=== PATIENT | male | born 1990 | race Caucasian/White ===

== ENCOUNTER 2023-05-23 22:18 | Inpatient (IN) | payer MEDICAID, SELFPAY ==
[2023-05-23 22:34] VITALS: BMI 23.6
[2023-05-23 22:35] VITALS: BP 147/96; PULSE 76; RESP 20; TEMP 36.8; O2SAT 100
[2023-05-24] MEDS: buprenorphine-naloxone 4-1 mg Film 1 EACH SUBLINGUAL (00:32)
[2023-05-24] MEDS: BuSPIRONE 10 mg Tablet 5 MG PO ×4 (00:32→21:03)
[2023-05-24] MEDS: trazodone 50 mg Tablet PO ×2 (00:36→21:04)
--- NOTE | 2023-05-24 02:51 | PC.NURSE ---
UPON ADMISSION PT WANTED TO RESTART MEDICATION. THIS NURSE CALLED DR. NICOLAS AND WAS GIVEN TELEPHONE ORDERS TO START ALL MEDICATION BUT SUBOXONE. ONE TIME ORDER FOR SUBOXONE WAS GIVEN AND FOR DR. GARCIA TO EVALUATE ON 05/24 IF IT SHOULD BE RESTARTED AFTER ONE TIME DOSE. PT WAS GIVEN BUSPAR AND ONE TIME DOSE OF SUBOXONE ORDERED.
[2023-05-24 06:00] VITALS: BP 99/56; PULSE 54; RESP 16; TEMP 36.7; O2SAT 98
[2023-05-24] MEDS: nicotine 4 mg lozenge MUCOUS MEM ×3 (07:42→21:03)
[2023-05-24] MEDS: sertraline 50 mg Tablet PO (08:52)
[2023-05-24] MEDS: ARIPiprazole 2 mg Tablet PO (08:52)
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
[2023-05-24] MEDS: buprenorphine-naloxone 4-1 mg Film 2 EACH SUBLINGUAL ×2 (11:15→17:25)
[2023-05-24] MEDS: nicotine 2 mg Gum BUCCAL ×2 (11:17→18:10)
[2023-05-24 14:00] VITALS: BP 135/86; PULSE 71; RESP 16; TEMP 36.6; O2SAT 96
[2023-05-24] MEDS: hyDROXYzine 25 mg Capsule 50 MG PO (21:04)
[2023-05-24 21:35] VITALS: BP 147/91; PULSE 70; RESP 18; TEMP 36.6; O2SAT 98
--- NOTE | 2023-05-24 23:42 | PC.NURSE ---
PT REQUESTS SOMETHING FOR ANXIETY AND TO HELP ME SLEEP, PT WAS GIVEN VISTARIL 50 MG PO FOR ANXIETY AND TRAZODONE 50 MG FOR SLEEP. MEDICATION HAS BEEN EFFECTIVE, PT HAS BEEN RESTING IN BED WITH EYES CLOSED, NO DISTRESS.
[2023-05-25 06:00] VITALS: RESP 15
[2023-05-25] MEDS: BuSPIRONE 10 mg Tablet 5 MG PO ×3 (08:48→20:19)
[2023-05-25] MEDS: sertraline 50 mg Tablet PO (08:48)
[2023-05-25] MEDS: ARIPiprazole 2 mg Tablet PO (08:48)
[2023-05-25] MEDS: buprenorphine-naloxone 4-1 mg Film 2 EACH SUBLINGUAL ×2 (08:48→18:09)
[2023-05-25] MEDS: nicotine 2 mg Gum BUCCAL ×3 (09:58→18:21)
--- NOTE | 2023-05-25 12:10 | P.NPUPN_ITS ---
Subjective NPU Subjective: Patient presented today reporting that he was doing okay. He reports that he feels safe inside the building and feels happy that he is getting the help he feels he needs. He has turned down some paperwork for [facility] and feels that getting his addiction treated his chance for getting better. We discussed the likelihood that he would be here over the weekend and he denied any major issues with that. He reports that he is eating okay and starting to sleep a little better. Mental Status Exam MSE Comments: This is a well-nourished well-developed white male in hospital scrubs with limi torie grooming but adequate eye contact. No abnormal movements except for psychomotor retardation. Cooperative with exam in mild distress. Speech was limited slightly decreased rate normal volume. Mood described as depressed, affect congruent. Thought process organized. Thought content: Patient endorsed suicidal but denied homicidal ideation, there were no delusions reported or noted, he denied any auditory or visual hallucinations. Attention and concentration appeared intact and memory was mostly reliable but none were formally tested. He was alert and oriented x 3. Insight and judgment were limited and impulse control was impaired. Vitals/I&O/Wt Last Vital Signs Temp 97.8 F 05/24/23 21:35 Pulse 70 05/24/23 21:35 Resp 15 05/25/23 06:00 BP 147/91 05/24/23 21:35 Pulse Ox 98 05/24/23 21:35 O2 Del Method Room Air 05/24/23 21:35 Weight last 48 hrs Weight 72.575 kg A&P Assessment and plan (1) Major depressive disorder, recurrent: (2) Suicide attempt: (3) Methamphetamine abuse: (4) Alcohol abuse: (5) Opioid dependence: Plan Patient is a 32-year-old single white male admitted after a suicide attempt via overdose on fentanyl and heroin revived through Narcan with reports of depressed mood and reporting the absence of current medications for several months. Patient will continue to require acute inpatient hospitalization while reexamining medications. He may benefit from inpatient substance abuse treatment as well. ?1. Encourage individual, group and milieu therapy. ?2.Recommend sober living treatment at the highest level of care to which the patient is willing to commit. 3.Continue q-15 minute checks for safety.? 4. CIWA x1-2 days only 5. Restart previous medications including suboxone Involuntary Hold Information 96 Hour Hold: 96 Hour Involuntary Admission: No Attestations NPU Medical Necessity Statement*: Inpatient hospitalization is medically necessary and deemed to ?be ?the clinically appropriate intervention at this time.? We will monitor/initiate medications and make changes as indicated.? Likely length of stay 6-9 days. Coding Level of Care Code Acute Code for Chg Fwd Diagnoses Major depressive disorder, recurrent F33.9 Suicide attempt T14.91XA Methamphetamine abuse F15.10 Alcohol abuse F10.10 Opioid dependence F11.20
[2023-05-25] MEDS: nicotine 4 mg lozenge MUCOUS MEM ×2 (13:13→20:19)
[2023-05-25 14:00] VITALS: BP 128/77; PULSE 71; RESP 16; TEMP 36.7; O2SAT 96
[2023-05-25 21:31] VITALS: BP 151/96; PULSE 72; RESP 16; TEMP 36.7; O2SAT 96
[2023-05-25] MEDS: trazodone 50 mg Tablet PO (21:42)
[2023-05-25] MEDS: hyDROXYzine 25 mg Capsule 50 MG PO (21:42)
[2023-05-26 06:00] VITALS: BP 113/74; PULSE 62; RESP 17; TEMP 36.6; O2SAT 95
[2023-05-26] MEDS: ARIPiprazole 2 mg Tablet PO (08:37)
[2023-05-26] MEDS: nicotine 4 mg lozenge MUCOUS MEM ×5 (08:37→20:05)
[2023-05-26] MEDS: buprenorphine-naloxone 4-1 mg Film 2 EACH SUBLINGUAL ×2 (08:37→18:07)
[2023-05-26] MEDS: sertraline 50 mg Tablet PO (08:38)
[2023-05-26] MEDS: BuSPIRONE 10 mg Tablet 5 MG PO ×3 (08:38→20:05)
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
[2023-05-26 14:00] VITALS: BP 139/88; PULSE 76; RESP 20; TEMP 36.6; O2SAT 96
--- NOTE | 2023-05-26 15:56 | P.NPUPN_ITS ---
Subjective NPU Subjective: Patient presented today reporting that he is adjusting to his medications being started. We discussed the work-up and treatment team and some possible leads for his sober living placement. He has filled out the documents necessary. We discussed making it through the weekend and hoping for placement at the beginning of the week. He denied any side effects to the medications and reported a commitment to following through with the sober living treatment placement at the beginning of the week. Mental Status Exam MSE Comments: This is a well-nourished well-developed white male in hospital scrubs with limited grooming but adequate eye contact. No abnormal movements except for psychomotor retardation. Cooperative with exam in mild distress. Speech was limited slightly decreased rate normal volume. Mood described as depressed, affect congruent. Thought process organized. Thought content: Patient endorsed suicidal but denied homicidal ideation, there were no delusions reported or noted, he denied any auditory or visual hallucinations. Attention and concentration appeared intact and memory was mostly reliable but none were formally tested. He was alert and oriented x 3. Insight and judgment were limited and impulse control was impaired. Vitals/I&O/Wt Last Vital Signs Temp 98 F 05/26/23 14:00 Pulse 76 05/26/23 14:00 Resp 20 H 05/26/23 14:00 BP 139/88 05/26/23 14:00 Pulse Ox 96 05/26/23 14:00 O2 Del Method Room Air 05/26/23 14:00 A&P Assessment and plan (1) Major depressive disorder, recurrent: (2) Suicide attempt: (3) Methamphetamine abuse: (4) Alcohol abuse: (5) Opioid dependence: Plan Patient is a 32-year-old single white male admitted after a suicide attempt via overdose on fentanyl and heroin revived through Narcan with reports of depressed mood and reporting the absence of current medications for several months. Patient will continue to require acute inpatient hospitalization while reexamining medications. He may benefit from inpatient substance abuse treatment as well. ?1. Encourage individual, group and milieu therapy. ?2.Recommend sober living treatment at the highest level of care to which the patient is willing to commit. 3.Continue q-15 minute checks for safety.? 4. CIWA x1-2 days only 5. Restarted previous medications including suboxone. Involuntary Hold Information 2 96 Hour Hold: 96 Hour Involuntary Admission: No Attestations NPU Medical Necessity Statement*: Inpatient hospitalization is medically necessary and deemed to ?be ?the clinically appropriate intervention at this time.? We will monitor/initiate medications and make changes as indicated.? Likely length of stay 5-8 days. Coding Level of Care Code Acute Code for Chg Fwd Diagnoses Major depressive disorder, recurrent F33.9 Suicide attempt T14.91XA Methamphetamine abuse F15.10 Alcohol abuse F10.10 Opioid dependence F11.20
--- NOTE | 2023-05-26 16:46 | PC.NURSE ---
NEW ORDERS RECEIVED FOR DOUBLE PORTIONS WITH ALL MEALS.
[2023-05-26] MEDS: trazodone 50 mg Tablet PO (20:06)
[2023-05-26 22:00] VITALS: BP 142/87; PULSE 65; RESP 17; O2SAT 97
[2023-05-27 06:00] VITALS: BP 118/74; PULSE 58; RESP 17; TEMP 36.5; O2SAT 94
[2023-05-27] MEDS: buprenorphine-naloxone 4-1 mg Film 2 EACH SUBLINGUAL ×2 (08:33→17:03)
[2023-05-27] MEDS: ARIPiprazole 2 mg Tablet PO (08:33)
[2023-05-27] MEDS: BuSPIRONE 10 mg Tablet 5 MG PO ×3 (08:33→20:20)
[2023-05-27] MEDS: sertraline 50 mg Tablet PO (08:33)
[2023-05-27] MEDS: nicotine 4 mg lozenge MUCOUS MEM ×4 (08:33→19:27)
--- NOTE | 2023-05-27 08:57 | W.PM.NPUPNS ---
Subjective NPU Subjective: Patient presented today reporting that he is feeling improvement. Though very slightly. We discussed the limited activity on the weekend but that we will work with the social work team on Monday to hopefully get him placed in some sober living program he reports a commitment to his recovery and following through with that arrangement from the treatment team. He reports that he is sleeping a little better and eating fine. Mental Status Exam MSE Comments: This is a well-nourished well-developed white male in hospital scrubs with limited grooming but adequate eye contact. No abnormal movements except for psychomotor retardation. Cooperative with exam in mild distress. Speech was limited slightly decreased rate normal volume. Mood described as maybe a little better, affect congruent. Thought process organized. Thought content: Patient endorsed suicidal but denied homicidal ideation, there were no delusions reported or noted, he denied any auditory or visual hallucinations. Attention and concentration appeared intact and memory was mostly reliable but none were formally tested. He was alert and oriented x 3. Insight and judgment were limited and impulse control was impaired. Vitals/I&O/Wt Last Vital Signs Temp 97.7 F 05/27/23 06:00 Pulse 58 L 05/27/23 06:00 Resp 17 05/27/23 06:00 BP 118/74 05/27/23 06:00 Pulse Ox 94 05/27/23 06:00 O2 Del Method Room Air 05/27/23 06:00 A&P Assessment and plan (1) Major depressive disorder, recurrent: (2) Suicide attempt: (3) Methamphetamine abuse: (4) Alcohol abuse: (5) Opioid dependence: Plan Patient is a 32-year-old single white male admitted after a suicide attempt via overdose on fentanyl and heroin revived through Narcan with reports of depressed mood and reporting the absence of current medications for several months. Patient will continue to require acute inpatient hospitalization while reexamining medications. He may benefit from inpatient substance abuse treatment as well. ?1. Encourage individual, group and milieu therapy. ?2.Recommend sober living treatment at the highest level of care to which the patient is willing to commit. 3.Continue q-15 minute checks for safety.? 4. CIWA x1-2 days only 5. Restarted previous medications including suboxone. Involuntary Hold Information 96 Hour Hold: 96 Hour Involuntary Admission: No Attestations NPU Medical Necessity Statement*: Inpatient hospitalization is medically necessary and deemed to ?be ?the clinically appropriate intervention at this time.? We will monitor/initiate medications and make changes as indicated.? Likely length of stay 3-5 days. Coding Level of Care Code Acute Code for Chg Fwd Diagnoses Major depressive disorder, recurrent F33.9 Suicide attempt T14.91XA Methamphetamine abuse F15.10 Alcohol abuse F10.10 Opioid dependence F11.20
[2023-05-27] MEDS: nicotine 2 mg Gum BUCCAL ×2 (10:33→14:25)
[2023-05-27 14:00] VITALS: BP 130/74; PULSE 71; RESP 15; TEMP 36.6; O2SAT 95
[2023-05-27] MEDS: trazodone 50 mg Tablet PO (20:20)
[2023-05-27] MEDS: hyDROXYzine 25 mg Capsule 50 MG PO (20:20)
[2023-05-27 21:41] VITALS: BP 129/87; PULSE 69; RESP 16; TEMP 36.4; O2SAT 97
[2023-05-28 06:00] VITALS: BP 111/69; PULSE 63; RESP 15; TEMP 36.6; O2SAT 93
[2023-05-28] MEDS: nicotine 4 mg lozenge MUCOUS MEM ×7 (06:46→20:24)
[2023-05-28] MEDS: sertraline 50 mg Tablet PO (08:39)
[2023-05-28] MEDS: BuSPIRONE 10 mg Tablet 5 MG PO ×3 (08:39→20:23)
[2023-05-28] MEDS: ARIPiprazole 2 mg Tablet PO (08:39)
[2023-05-28] MEDS: buprenorphine-naloxone 4-1 mg Film 2 EACH SUBLINGUAL ×2 (08:40→17:29)
--- NOTE | 2023-05-28 11:03 | W.PM.NPUPNS ---
Subjective NPU Subjective: Patient presented today reporting that he is feeling better overall and is looking forward to working with the treatment team tomorrow in hopes that a sober living program is available to him sooner rather. He is now that he is committed to going and that he be patient and allowing 1 to be found. He now is he has no real options after this including no safe or constant living arrangement. Mental Status Exam MSE Comments: This is a well-nourished well-developed white male in hospital scrubs with limited grooming but adequate eye contact. No abnormal movements except for psychomotor retardation. Cooperative with exam in no acute distress. Speech was limited slightly decreased rate normal volume. Mood described as a little better just hoping to get excepted to a program, affect congruent. Thought process organized. Thought content: Patient endorsed suicidal but denied homicidal ideation, there were no delusions reported or noted, he denied any auditory or visual hallucinations. Attention and concentration appeared intact and memory was mostly reliable but none were formally tested. He was alert and oriented x 3. Insight and judgment were limited and impulse control was impaired. Vitals/I&O/Wt Last Vital Signs Temp 97.8 F 05/28/23 14:00 Pulse 70 05/28/23 14:00 Resp 16 05/28/23 14:00 BP 132/663 05/28/23 14:00 Pulse Ox 97 05/28/23 14:00 O2 Del Method Room Air 05/28/23 14:00 Weight last 48 hrs Weight 88.621 kg Weight 88.621 kg A&P Assessment and plan (1) Major depressive disorder, recurrent: (2) Suicide attempt: (3) Methamphetamine abuse: (4) Alcohol abuse: (5) Opioid dependence: Plan Patient is a 32-year-old single white male admitted after a suicide attempt via overdose on fentanyl and heroin revived through Narcan with reports of depressed mood and reporting the absence of current medications for several months. Patient will continue to require acute inpatient hospitalization while reexamining medications. He may benefit from inpatient substance abuse treatment as well. ?1. Encourage individual, group and milieu therapy. ?2.Recommend sober living treatment at the highest level of care to which the patient is willing to commit. 3.Continue q-15 minute checks for safety.? 4. CIWA x1-2 days only 5. Restarted previous medications including suboxone. Involuntary Hold Information 96 Hour Hold: 96 Hour Involuntary Admission: No Attestations NPU Medical Necessity Statement*: Inpatient hospitalization is medically necessary and deemed to ?be ?the clinically appropriate intervention at this time.? We will monitor/initiate medications and make changes as indicated.? Likely length of stay 2-4 days. Coding Level of Care Code Acute Code for Chg Fwd Diagnoses Major depressive disorder, recurrent F33.9 Suicide attempt T14.91XA Methamphetamine abuse F15.10 Alcohol abuse F10.10 Opioid dependence F11.20
[2023-05-28 14:00] VITALS: BP 132/63; PULSE 70; RESP 16; TEMP 36.6; O2SAT 97
[2023-05-28 20:03] VITALS: BP 137/92; PULSE 84; RESP 18; TEMP 36.9; O2SAT 92
[2023-05-28] MEDS: trazodone 50 mg Tablet PO (20:23)
[2023-05-28] MEDS: hyDROXYzine 25 mg Capsule 50 MG PO (20:23)
[2023-05-29 06:00] VITALS: BP 113/68; PULSE 60; RESP 16; O2SAT 97
[2023-05-29] MEDS: nicotine 4 mg lozenge MUCOUS MEM ×6 (06:46→19:43)
[2023-05-29] MEDS: buprenorphine-naloxone 4-1 mg Film 2 EACH SUBLINGUAL ×2 (08:06→17:56)
[2023-05-29] MEDS: BuSPIRONE 10 mg Tablet 5 MG PO ×3 (08:06→19:43)
[2023-05-29] MEDS: sertraline 50 mg Tablet PO (08:06)
[2023-05-29] MEDS: ARIPiprazole 2 mg Tablet PO (08:06)
[2023-05-29] MEDS: nicotine 2 mg Gum BUCCAL (10:26)
[2023-05-29 14:00] VITALS: BP 138/78; PULSE 74; RESP 17; TEMP 36.6; O2SAT 93
--- NOTE | 2023-05-29 15:31 | P.NPUPN_ITS ---
Subjective NPU Subjective: Patient presented today reporting that things were going fine. He report he is working with the social work team on a few different programs for sober living treatment after discharge. He reports that he is committed to the process and to his recovery and is hoping that there is an option that presents itself soon. He denies any problems with the medications and reports that he is eating better and sleeping better. Mental Status Exam MSE Comments: This is a well-nourished well-developed white male in hospital scrubs with limited grooming but adequate eye contact. No abnormal movements except for mild psychomotor retardation. Cooperative with exam in no acute distress. Speech was slightly decreased rate normal volume. Mood described as a little better, is waiting for an answer from the program, affect congruent. Thought process organized. Thought content: Patient endorsed suicidal but denied homicidal ideation, there were no delusions reported or noted, he denied any auditory or visual hallucinations. Attention and concentration appeared intact and memory was mostly reliable but none were formally tested. He was alert and oriented x 3. Insight and judgment were limited, but improving and impulse control was impaired. Vitals/I&O/Wt Last Vital Signs Temp 98.0 F 05/29/23 21:23 Pulse 74 05/29/23 21:23 Resp 18 05/29/23 21:23 BP 129/79 05/29/23 21:23 Pulse Ox 95 05/29/23 21:23 O2 Del Method Room Air 05/29/23 21:23 A&P Assessment and plan (1) Major depressive disorder, recurrent: (2) Suicide attempt: (3) Methamphetamine abuse: (4) Alcohol abuse: (5) Opioid dependence: Plan Patient is a 32-year-old single white male admitted after a suicide attempt via overdose on fentanyl and heroin revived through Narcan with reports of depressed mood and reporting the absence of current medications for several months. Patient will continue to require acute inpatient hospitalization while reexamining medications. He may benefit from inpatient substance abuse karen atment as well. ?1. Encourage individual, group and milieu therapy. ?2.Recommend sober living treatment at the highest level of care to which the patient is willing to commit. 3.Continue q-15 minute checks for safety.? 4. CIWA x1-2 days only 5. Restarted previous medications including suboxone. Involuntary Hold Information 96 Hour Hold: 96 Hour Involuntary Admission: No Attestations NPU Medical Necessity Statement*: Inpatient hospitalization is medically necessary and deemed to ?be ?the clinically appropriate intervention at this time.? We will monitor/initiate medications and make changes as indicated.? Likely length of stay 1-3 days. Coding Level of Care Code Acute Code for Chg Fwd Diagnoses Major depressive disorder, recurrent F33.9 Suicide attempt T14.91XA Methamphetamine abuse F15.10 Alcohol abuse F10.10 Opioid dependence F11.20
[2023-05-29] MEDS: hyDROXYzine 25 mg Capsule 50 MG PO (19:43)
[2023-05-29] MEDS: trazodone 50 mg Tablet PO (19:44)
--- NOTE | 2023-05-29 21:13 | PC.NURSE ---
IN ROOM, ASSESSMENT COMPLETED. PT DENIES SI/HI AND AVH AT THIS TIME. DENIES PAIN. PT STATES HE DID NOT GET TO SPEAK WITH SOCIAL WORK TODAY BUT REALLY NEEDS TO. PT WAS DIRECTED TO TALK TO SKIN THERAPIST IN THE MORNING AND THAT THIS RN WOULD LEAVE THEM A NOTE TO SPEAK TO HIM. SUPPORT WAS VOICED.
[2023-05-29 21:23] VITALS: BP 129/79; PULSE 74; RESP 18; TEMP 36.7; O2SAT 95
[2023-05-30 06:00] VITALS: BP 111/69; PULSE 71; RESP 16; O2SAT 94
[2023-05-30] MEDS: ARIPiprazole 2 mg Tablet PO (07:42)
[2023-05-30] MEDS: sertraline 50 mg Tablet PO (07:42)
[2023-05-30] MEDS: buprenorphine-naloxone 4-1 mg Film 2 EACH SUBLINGUAL (07:43)
[2023-05-30] MEDS: BuSPIRONE 10 mg Tablet 5 MG PO ×2 (07:43→14:30)
[2023-05-30] MEDS: nicotine 4 mg lozenge MUCOUS MEM ×3 (07:43→10:43)
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
[2023-05-30 12:48] VITALS: BP 111/69; PULSE 71; RESP 16; TEMP 36.7; O2SAT 94
[2023-05-30] MEDS: nicotine 2 mg Gum BUCCAL (14:31)
== END 2023-05-30 15:53 | disposition home or self-care (01) | DRG 918 ==
PROVIDERS: Admitting Provider Psychiatry & Neurology Psychiatry; Visit Provider Psychiatry & Neurology Psychiatry
DX: T40.412A Poisoning by fentanyl or fentanyl analogs, intentional self-harm, initial encounter (principal); F11.20 Opioid dependence, uncomplicated; F33.9 Major depressive disorder, recurrent, unspecified; R45.851 Suicidal ideations; T40.1X2A Poisoning by heroin, intentional self-harm, initial encounter; F10.10 Alcohol abuse, uncomplicated; F15.10 Other stimulant abuse, uncomplicated; F12.90 Cannabis use, unspecified, uncomplicated; T50.996A Underdosing of other drugs, medicaments and biological substances, initial encounter; Z91.128 Patient's intentional underdosing of medication regimen for other reason; B19.20 Unspecified viral hepatitis C without hepatic coma; Z59.00 Homelessness unspecified
CPT/HCPCS: 97150; 97165; 99238; J0573